=== PATIENT | male | born 1950 | race Caucasian/White ===

== ENCOUNTER → 2019-05-03 | Outpatient (CLI) | payer MEDICARE, OTHER ==
[~2019-05-03] MED LIST: ALLOPURINOL300 MG PO; CLARITIN10 MG PO; CRESTOR5 MG PO; KEFLEX500 MG PO; LISINOPRIL10 MG PO; NORCO 7.5-3251 EACH PO; PRILOSEC PO
--- NOTE | 2019-05-03 13:51 | Diagnostic Imaging Report ---
MRI BRAIN WO HISTORY: Double vision, headache COMPARISON: None. TECHNIQUE: Sagittal T2, axial T2, axial T1, axial T2/FLAIR, axial gradient echo (or susceptibility weighted), coronal T2/FLAIR, and axial diffusion weighted MR images of the brain were obtained without contrast. Motion artifacts obscure some details. DISCUSSION: Scalp/bone marrow: Unremarkable. Brain sulci: Appropriate for patient's age. Ventricles: Normal in size and configuration. No hydrocephalus. Extra-axial spaces: No masses or fluid collections. Parenchyma: Scattered T2/FLAIR hyperintense foci throughout the supratentorial white matter are likely chronic microvascular ischemic changes. Otherwise, no mass, hemorrhage, or acute vascular insults. Vessels: Normal flow voids in major arteries and veins. Sellar/Suprasellar region: No abnormalities. Craniocervical junction: No abnormalities. Incidental findings: There is mild disc degeneration in the upper cervical spine. Minimal scattered bilateral paranasal sinus mucosal thickening is present. IMPRESSION: 1. Mild supratentorial chronic microvascular ischemic change. 2. No other intracranial abnormalities. Signed by: Dr. Jasiel Pickard M.D. on 05/03/2019 1:48 PM
== END ==
LOC: MRI 12:42
PROVIDERS: ATTEND Family Medicine
DX: G44.52 New daily persistent headache (NDPH) (principal)
CPT/HCPCS: 70551